=== PATIENT | female | born 1990 | race Caucasian/White ===

== ENCOUNTER 2017-08-12 14:25 | Emergency (ER) | payer OTHER ==
[~2017-08-12] VITALS: Ht 152.4 cm; Wt 46.9 kg
[2017-08-12 14:40] VITALS: BP 124/88
[2017-08-12] MEDS ORDERED: PROPARACAINE OPHTH 0.5%, 15ML ONE (15:52)
[2017-08-12] MEDS ORDERED: FLUORESCEIN OPHTHALMIC 1 MG STRIP ONE ×2 (15:52→16:28)
[2017-08-12] MEDS ORDERED: FLUORESCEIN OPHTHALMIC 1 MG STRIP EACHEYE ONE (16:00)
[2017-08-12] MEDS ORDERED: PROPARACAINE OPHTH 0.5%, 15ML EACHEYE ONE (16:00)
== END 2017-08-12 21:28 | disposition home or self-care (01) ==
LOC: ED 17:22
DX: B30.9 Viral conjunctivitis, unspecified (principal)
CPT/HCPCS: 99283

== ENCOUNTER 2020-12-08 17:49 | Inpatient (IN) | payer MEDICAID, OTHER ==
[~2020-12-08] VITALS: Ht 167.6 cm; Wt 53.0 kg
[~2020-12-08 17:49] MED LIST: ETOMIDATE 20 MG/10 ML ONE; PROPOFOL 10 MG/ML, 100ML IV ONE; SUCCINYLCHOLINE 20 MG/ML, 10ML ONE
--- NOTE | 2020-12-08 17:55 | NUR ---
PT BIB [facility] FOR SEROQUEL OD, SI NOTE NOTE LEFT ON SCENE AND BROUGHT BY [facility]. PT LAST SEEN NORMAL @ 1600 AND WAS FOUND DOWN BY ROOMATES. PT ARRIVES TO ER OBTUNDED, [facility] 8. PT WITH STABLE VS. JADON SANDERS AT BEDSIDE. WILL FOLLOW ORDERS.
--- NOTE | 2020-12-08 18:02 | NUR ---
PT INTUBATED BY ER . PT SEDATED WITH ETOMIDATE AND SUCC USED FOR PARALYTIC PER ORDERS, SEE MAR. AN 8.0 ET USED, PLACED AT 25 @ THE LIP. PT PLACED ON VENTILATOR BY RT. INITIAL VENT SETTINGS Vt 400, 60% PEEP 5, RR 14, PT TOLERATING WELL, ON ETCO2 MONITORING.
[2020-12-08] MEDS ORDERED: FENTANYL PF 100 MCG/2ML ONE ×2 (18:10→19:12)
[2020-12-08 18:30] LABS: BASOPHILS % (AUTO) 0 % (0-1); EOSINOPHILS % (AUTO) 1 % (1-7); LYMPHOCYTES % (AUTO) 59 % (22-44); MEAN CORPUSCULAR HEMOGLOBIN 31.1 pg (27.0-34.8); MEAN CORPUSCULAR HGB CONC 33.6 g/dL (32.4-35.8); MEAN PLATELET VOLUME 8.2 fL (7.4-10.4); MONOCYTES % (AUTO) 6 % (2-9); NEUTROPHILS % (AUTO) 34 % (42-75); PLATELET COUNT 205 x10^3/uL (130-400); RED BLOOD COUNT 4.01 x10^6/uL (3.82-5.3); RED CELL DISTRIBUTION WIDTH 12.7 % (9.6-15.2)
[2020-12-08] MEDS ORDERED: SODIUM CHLORIDE 0.9% 1,000 ML IV ONE (18:30)
[2020-12-08] MEDS ORDERED: ETOMIDATE 20 MG/10 ML IV ONE (18:30)
[2020-12-08] MEDS ORDERED: PROPOFOL 100 ML IV SCH (18:30)
[2020-12-08] MEDS ORDERED: PLEASE ENTER HEIGHT AND WEIGHT MC SCH (18:30)
[2020-12-08] MEDS ORDERED: FENTANYL PF 100 MCG/2ML IVPush ONE (18:30)
--- NOTE | 2020-12-08 18:30 | NUR ---
PER SW, PT MAYBE DRANK ETOH TODAY WHILE AT HOME. FRIENDS IN WAITROOM.
--- NOTE | 2020-12-08 18:30 | NUR ---
OGDEN CATH START AND PT ON CONT TEMP MONITORING. og STARTED, PLACED IN INTMIT LOW SUCTION. PT REMAINS ON MONITORS, VSS. PT REMAINS WELL SEDATED, TOLERATING VENT WELL. CONT TO MONITOR.
[2020-12-08 18:38] LABS: ALANINE AMINOTRANSFERASE 21 U/L (12-78); ALBUMIN 3.3 g/dL (3.4-5.0); ANION GAP 12 mmol/L (5-15); CALCIUM 7.4 mg/dL (8.5-10.1); CHLORIDE 112 mmol/L (98-107); SALICYLATE LEVEL < 1.7 mg/dL (2.8-20.0)
[2020-12-08 18:38] LABS: MICROSCOPIC NOT IND
--- NOTE | 2020-12-08 18:40 | NUR ---
ET TUBE BACKED OUT BY RT, NOW 23 @ THE LIP.
[2020-12-08 18:43] LABS: ALKALINE PHOSPHATASE 44 U/L (45-117); BILIRUBIN,TOTAL 0.2 mg/dL (0.2-1.0); CREATININE 0.46 mg/dL (0.55-1.02); TOTAL PROTEIN 6.1 g/dL (6.4-8.2)
--- NOTE | 2020-12-08 18:45 | NUR ---
FIO2 DECREASED TO 40% BY RT.
--- NOTE | 2020-12-08 18:51 | NUR ---
REPORT TO CHRIS JAVIER.
[2020-12-08 18:52] LABS: AMPHETAMINE SCREEN, URINE Negative (Negative); BARBITURATE SCREEN, URINE Negative (Negative); BENZODIAZEPINE SCREEN, URINE Negative (Negative); CANNABINOID SCREEN, URINE Negative (Negative); COCAINE SCREEN, URINE Negative (Negative); METHADONE SCREEN, URINE Negative (Negative); OPIATE SCREEN, URINE Negative (Negative)
--- NOTE | 2020-12-08 18:55 | NUR ---
ATTEMPTED TO CALL REPORT TO CCU, NURSE NOT AVAILABLE, DOING SHIFT CHANGE PER INTERNATIONAL FIRST OFFICER.
--- NOTE | 2020-12-08 18:55 | NUR ---
Report received from YAYA Reddy. This RN to assume care. Patient intubated and sedation maintaining well with Propofol. Patient becoming slightly hypotensive. 1L NS to be admin.
[2020-12-08] MEDS ORDERED: SENNA 176 MG/5 ML ORAL SOL NG PRN (19:00)
[2020-12-08] MEDS ORDERED: PHARMACY MAY ADJ FOR RENAL FX MC SCH (19:00)
[2020-12-08] MEDS ORDERED: SUCCINYLCHOLINE 20 MG/ML, 10ML IV ONE (19:00)
[2020-12-08] MEDS ORDERED: GLUCAGON 1 MG IM PRN (19:00)
[2020-12-08] MEDS ORDERED: LIDOCAINE-MPF 1%, 2ML ENDO PRN (19:00)
[2020-12-08] MEDS ORDERED: DEXTROSE 50%, 50ML SYRINGE IVPush PRN (19:00)
[2020-12-08] MEDS ORDERED: BISACODYL 10 MG SUPP PR PRN (19:00)
[2020-12-08] MEDS ORDERED: DEXTROSE 4 GM TAB.CHEW PO PRN (19:00)
[2020-12-08] MEDS ORDERED: NOREPINEPHRINE 8 MG in SODIUM CHLORIDE 0.9% 242 ML IV PRN (19:00)
[2020-12-08] MEDS ORDERED: LACTULOSE 20 GM/30 ML UDC NG PRN (19:00)
[2020-12-08] MEDS ORDERED: SENNA/DOCUSATE TABLET NG PRN (19:00)
[2020-12-08] MEDS ORDERED: SODIUM CHLORIDE 0.9%, 500ML IVBOLUS ONE (19:00)
[2020-12-08] MEDS: FENTANYL PF 100 MCG/2ML IVPush PRN ×2 (19:14→22:11)
--- NOTE | 2020-12-08 19:17 | NUR ---
CALL FROM PT'S ROOMMATE, ACCORDING TO ROOMMATE, PT TOOK APPROX 7-10 SEROQUEL THAT WERE THE ROOMMATES PILLS. PT HAS A HX OF DEPRESSION AND ADD. PT NOW PLACED ON L2K IN ED. VITALS REMAIN STABLE. AWAITING TRNASPORT TO CCU.
--- NOTE | 2020-12-08 19:30 | NUR ---
Patient BP stable after fluid challenge; Propofol rate increased and patient tolerating well.
[2020-12-08] MEDS ORDERED: CALCIUM GLUCONATE 4.6 MEQ in SODIUM CHLORIDE 0.9% 50 ML IV ONE (21:00)
[2020-12-08] MEDS ORDERED: D5%-0.45NACL+KCL 20MEQ 1,000 ML IV SCH (21:00)
[2020-12-08] MEDS ORDERED: THIAMINE 200 MG in SODIUM CHLORIDE 0.9% 50 ML IV ONE (21:00)
[2020-12-08] MEDS: SODIUM CHLORIDE FLUSH 10ML SYR IVF SCH (22:41)
[2020-12-08] MEDS: ENOXAPARIN 40 MG/0.4 ML SQ SCH (22:41)
[2020-12-08] MEDS: FAMOTIDINE 20 MG/2 ML IV SCH (22:41)
[2020-12-08 23:49] VITALS: BP 119/82
[2020-12-09] MEDS: FENTANYL PF 100 MCG/2ML IVPush PRN ×3 (00:26→06:24)
[2020-12-09] MEDS: PROPOFOL 100 ML IV PRN ×2 (00:26→05:51)
[2020-12-09 05:26] LABS: BASOPHILS % (AUTO) 0 % (0-1); EOSINOPHILS % (AUTO) 2 % (1-7); LYMPHOCYTES % (AUTO) 34 % (22-44); MEAN CORPUSCULAR HEMOGLOBIN 31.2 pg (27.0-34.8); MEAN CORPUSCULAR HGB CONC 34.5 g/dL (32.4-35.8); MEAN PLATELET VOLUME 8.1 fL (7.4-10.4); MONOCYTES % (AUTO) 7 % (2-9); NEUTROPHILS % (AUTO) 58 % (42-75); PLATELET COUNT 214 x10^3/uL (130-400); RED BLOOD COUNT 3.92 x10^6/uL (3.82-5.3)
[2020-12-09 05:37] LABS: ANION GAP 9 mmol/L (5-15); CHLORIDE 110 mmol/L (98-107); CREATININE 0.47 mg/dL (0.55-1.02)
[2020-12-09] MEDS ORDERED: MAGNESIUM SULFATE PMX 2GM/50ML 50 ML IV ONE (07:00)
[2020-12-09] MEDS ORDERED: ONDANSETRON 2MG/ML, 2ML IV PRN (08:00)
[2020-12-09] MEDS: FAMOTIDINE 20 MG/2 ML IV SCH (09:03)
[2020-12-09] MEDS: SODIUM CHLORIDE FLUSH 10ML SYR IVF SCH ×2 (09:03→20:38)
[2020-12-09 19:42] VITALS: BP 105/74
[2020-12-09] MEDS: ENOXAPARIN 40 MG/0.4 ML SQ SCH (20:37)
[2020-12-10 02:01] VITALS: BP 114/80
[2020-12-10 07:37] VITALS: BP 106/73
[2020-12-10] MEDS: SODIUM CHLORIDE FLUSH 10ML SYR IVF SCH (09:00)
[2020-12-10 12:39] VITALS: BP 122/80
[2020-12-10 20:07] VITALS: BP 118/68
[2020-12-11] MEDS: ENOXAPARIN 40 MG/0.4 ML SQ SCH (00:32)
[2020-12-11] MEDS: SODIUM CHLORIDE FLUSH 10ML SYR IVF SCH ×3 (00:33→21:00)
[2020-12-11 01:25] VITALS: BP 124/76
[2020-12-11] MEDS ORDERED: MELATONIN 5 MG TABLET ONE (01:58)
[2020-12-11] MEDS ORDERED: ACETAMINOPHEN 325 MG TABLET PO PRN (02:30)
[2020-12-11 08:50] VITALS: BP 108/77
[2020-12-11] MEDS ORDERED: MELATONIN 5 MG TABLET PO ONE (21:00)
[2020-12-11] MEDS ORDERED: MELATONIN 5 MG TABLET PO PRN (21:00)
[2020-12-12 01:45] VITALS: BP 109/80
[2020-12-12] MEDS: ENOXAPARIN 40 MG/0.4 ML SQ SCH (01:48)
[2020-12-12 07:26] VITALS: BP 106/75
[2020-12-12] MEDS: SODIUM CHLORIDE FLUSH 10ML SYR IVF SCH (09:00)
[2020-12-12 14:52] VITALS: BP 113/78
[2020-12-13] MEDS ORDERED: DEXT5TAB17 PO (09:57)
== END 2020-12-12 15:15 | DRG 917 ==
LOC: ED 18:00 → EDIP 18:08 → ED 18:37 → CCU 20:35 → 5SO 12-09 17:09 → 3N 12-11 19:29
PROVIDERS: ADMIT Family Medicine; ATTEND Internal Medicine
PROC: 0BH17EZ Insertion of Endotracheal Airway into Trachea, Via Natural or Artificial Opening (ICD-10-PCS; principal; 2020-12-08)
PROC: 5A1935Z Respiratory Ventilation, Less than 24 Consecutive Hours (ICD-10-PCS; 2020-12-08)
DX: T43.592A Poisoning by other antipsychotics and neuroleptics, intentional self-harm, initial encounter (principal); G92 Toxic encephalopathy; J96.01 Acute respiratory failure with hypoxia; F10.129 Alcohol abuse with intoxication, unspecified; F32.9 Major depressive disorder, single episode, unspecified; F41.9 Anxiety disorder, unspecified; Z20.822 Contact with and (suspected) exposure to COVID-19; Y90.9 Presence of alcohol in blood, level not specified; R00.0 Tachycardia, unspecified
CPT/HCPCS: 31500; 36415; 36600; 71045; 80048; 80053; 80299; 80307; 80320; 80329; 81003; 82803; 83735; 84100; 84478; 84703; 85025; 87070; 87081; 87205; 87635; 93005; 94002; 94003; 99291; G0378; J0610; J1650; J2704; J3010; J3411; G0480; J0330; J3475; J3480; J7030; J7040

== ENCOUNTER 2020-12-12 13:00 | Inpatient (IN) | payer MEDICAID ==
[~2020-12-12] VITALS: Ht 152.4 cm; Wt 44.5 kg
[2020-12-12] MEDS ORDERED: DOCUSATE 100 MG CAPSULE PO PRN (13:30)
[2020-12-12] MEDS ORDERED: POLYETHYLENE GLYCOL 17 GM PACKET PO PRN (13:30)
[2020-12-12] MEDS ORDERED: ONDANSETRON ODT 4 MG PO PRN (13:30)
[2020-12-12] MEDS ORDERED: BISACODYL 10 MG SUPP PR PRN (13:30)
[2020-12-12] MEDS ORDERED: ACETAMINOPHEN 325 MG TABLET PO PRN (13:30)
[2020-12-12 17:26] VITALS: BP 111/76
[2020-12-12 19:30] VITALS: BP 116/88
[2020-12-12] MEDS: MELATONIN 5 MG TABLET PO PRN (21:30)
[2020-12-13 06:38] LABS: CHOL/HDL RATIO 2.4; FREE T4 (FREE THYROXINE) 1.8 ng/dL (0.76-1.46); LDL/HDL RATIO 1.3 (0.5-3.0)
[2020-12-13 07:26] VITALS: BP 106/74
[2020-12-13] MEDS ORDERED: DEXT5TAB17 PO (09:57)
[2020-12-13] MEDS: ESCITALOPRAM 10MG TABLET PO SCH (15:54)
[2020-12-13 20:14] VITALS: BP 108/77
[2020-12-14 07:46] VITALS: BP 101/67
[2020-12-14] MEDS: ESCITALOPRAM 10MG TABLET PO SCH (08:37)
[2020-12-14 19:24] VITALS: BP 104/79
[2020-12-15 07:50] VITALS: BP 111/73
[2020-12-15] MEDS: ESCITALOPRAM 10MG TABLET PO SCH (07:55)
[2020-12-15] MEDS ORDERED: ESCI10TA97 PO (14:30)
[2020-12-15] MEDS ORDERED: MELA5TAB14 PO (14:30)
[2020-12-15 19:35] VITALS: BP 107/73
[2020-12-15] MEDS: MELATONIN 5 MG TABLET PO PRN (22:40)
[2020-12-16 07:12] VITALS: BP 107/73
[2020-12-16] MEDS: ESCITALOPRAM 10MG TABLET PO SCH (08:21)
== END 2020-12-16 13:05 | disposition home or self-care (01) | DRG 885 ==
LOC: 3E 15:03
PROVIDERS: ADMIT Psychiatry & Neurology Psychosomatic Medicine; ATTEND Psychiatry & Neurology Psychosomatic Medicine
DX: F33.2 Major depressive disorder, recurrent severe without psychotic features (principal); Z91.5 Personal history of self-harm; Z72.89 Other problems related to lifestyle
CPT/HCPCS: 36415; 80061; 84439; 84443